=== PATIENT | female | born 2005 | race Caucasian/White ===

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

== ENCOUNTER 2025-02-22 14:28 | Outpatient (CLI) | payer OTHER | END 2025-02-22 14:29 | disposition home or self-care (01) | LOC: SCSMRI 14:28 | PROVIDERS: ATTEND Orthopaedic Surgery | DX: S63.592A Other specified sprain of left wrist, initial encounter (principal); M77.8 Other enthesopathies, not elsewhere classified ==